=== PATIENT | female | born 1985 | race Asian ===

== ENCOUNTER 2024-01-09 13:04 | Emergency (ER) | payer SELFPAY ==
[~2024-01-09] VITALS: Ht 152.4 cm; Wt 52.2 kg
[2024-01-09 14:52] VITALS: PULSE 78; RESP 18; TEMP 98.1; O2SAT 100
[2024-01-09] MEDS ORDERED: AZITHROMYCIN250 MG PO (15:15)
[2024-01-09] MEDS ORDERED: DICLEGIS DR 101 EACH PO (15:15)
[2024-01-09] MEDS ORDERED: ONDANSETRON ODT4 MG PO (15:18)
== END 2024-01-09 15:25 | disposition home or self-care (01) ==
LOC: ER 14:47
DX: O21.0 Mild hyperemesis gravidarum (principal); J40 Bronchitis, not specified as acute or chronic; R05.9 Cough, unspecified
CPT/HCPCS: 99283